=== PATIENT | male | born 1975 | race American Indian/Alaskan Native ===

== ENCOUNTER 2017-08-31 18:45 | Inpatient (IN) | payer MEDICAID, OTHER ==
[2017-08-31] MEDS ORDERED: TDAP Vaccine 0.5 mL Syr IM ONE (19:02)
[2017-08-31] MEDS ORDERED: Sodium Chloride 0.9% 1,000 ML IV SCH (19:30)
--- NOTE | 2017-08-31 19:32 | ED PDOC ---
Arrival/HPI - General Chief Complaint: Altered Mental Status Time Seen by Provider: 08/31/17 18:52 Historian: Patient - History of Present Illness Narrative History of Present Illness (Text): 08/31/17 18:58 A 42 year old male, whose past medical history includes substance abuse, brought into the emergency department for possible overdose. Patient was [place] the [place], likely having overdosed according to bystanders. Patient was given 2mg of Narcan intranasally and 2mg of Narcan through IV. Patient was somewhat arousable. Limited HPI and ROS due to patient unable to provide history secondary to altered mental status. No PMD Time/Duration: Prior to Arrival Symptom Course: Unchanged Activities at Onset: Light Context: Other (Park) Past Medical History - Provider Review Nursing Documentation Reviewed: Yes - Infectious Disease Hx of Infectious Diseases: None Family/Social History - Physician Review Nursing Documentation Reviewed: Yes Family/Social History: No Known Family HX Allergies/Home Meds Allergies/Adverse Reactions: Allergies Unobtainable Allergy (Verified 08/31/17 18:56) Home Medications: Home Meds Medication Instructions Recorded Confirmed [place]/Hydrochlorothiazide 30 tab PO 09/01/17 [Tekturna Hct 150 mg-12.5 mg] Review of Systems - Review of Systems Systems not reviewed;Unavailable: Altered Mental Status (overdose) Physical Exam Vital Signs Reviewed: Yes Vital Signs Temp Pulse Resp BP Pulse Ox 09/01/17 00:48 85 12 100/65 99 08/31/17 21:49 99 H 15 111/62 95 08/31/17 18:45 98.4 F 111 H 16 112/72 95 Temperature: Afebrile Blood Pressure: Normal Pulse: Regular Respiratory Rate: Normal Pain Distress: None - Systems Exam Head: Present: Normocephalic, Other (abrasion to forehead) Pupils: Present: PERRL Extroacular Muscles: Present: EOMI Conjunctiva: Present: Normal Mouth: Present: Moist Mucous Membranes Neck: Present: Other (diffuse tenderness) Respiratory/Chest: Present: Clear to Auscultation, Good Air Exchange. No: Respiratory Distress, Accessory Muscle Use Cardiovascular: Present: Regular Rate and Rhythm, Normal S1, S2. No: Murmurs Abdomen: No: Tenderness, Distention, Peritoneal Signs Upper Extremity: Present: Normal Inspection. No: Cyanosis, Edema Lower Extremity: Present: Normal Inspection. No: Edema Neurological: Present: GCS=15, CN II-XII Intact Skin: Present: Warm, Dry, Normal Color. No: Rashes Medical Decision Making ED Course and Treatment: 08/31/17 19:01 Impression: 42 year old male with overdose. Physical exam show abrasion to forehead; diffused tenderness to neck; lungs clear. Differential Diagnosis included but are not limited to: Overdose rule out Intracranial Hemorrhage vs. Fracture Plan: -- EKG -- Head CT -- Cervical CT -- Chest X-ray -- Labs -- IV Fluids -- TDAP Vaccine -- Urinalysis -- Reassess and disposition Progress Notes: EKG: Ordered, reviewed, and independently interpreted the EKG. Rate : 112 BPM Rhythm : Sinus tachycardia. Interpretation : No ST-segment elevations or depressions, no T-wave inversions, normal intervals. Comparison : No previous EKG for comparison. 08/31/17 20:56 Patient is awake and alert. Patient admits to substance abuse. 08/31/17 22:19 Case discussed with medical examiner low vision therapist, who is aware and agrees with plan. 08/31/17 22:[address] Smith, nixa physician, who is aware and agrees with plan. Accepts pt in to hospitalist service. [facility] for overdose. - Lab Interpretations Lab Results: 08/31/17 19:20 08/31/17 19:20 Lab Results 08/31/17 20:22: Urine Opiates Screen Negative, Urine Methadone Screen Negative, Ur Barbiturates Screen Negative, Ur Phencyclidine Scrn Negative, Ur Amphetamines Screen Negative, U Benzodiazepines Scrn Negative, U Oth Cocaine Metabols Positive H, U Cannabinoids Screen Negative 08/31/17 20:22: Urine Color Yellow, Urine Appearance Clear, Urine pH 5.5, Ur Specific [place] >= 1.030, Urine Protein 100 H, Urine Glucose (UA) 250 H, Urine Ketones Negative, Urine Blood Large H, Urine Nitrate Negative, Urine Bilirubin Negative, Urine Urobilinogen 0.2, Ur Leukocyte Esterase Negative, Urine RBC 25 - 30, Urine WBC 2 - 5, Ur Epithelial Cells 4 - 5 08/31/17 19:20: Alcohol, Quantitative < 10 08/31/17 19:20: Salicylates < 1 L, Acetaminophen < 10.0 L 08/31/17 19:20: Sodium 147, Potassium 4.5, Chloride 100, Carbon Dioxide 24, Anion Gap 27 H, BUN 21, Creatinine 2.0 H, Est GFR ( Amer) 45, Est GFR ( Non-Af Amer) 37, Random Glucose 264 H, Calcium 9.7, Magnesium 2.2, Total Bilirubin 0.5, AST 50, ALT 37, Alkaline Phosphatase 75, Total Creatine Kinase 572 H, CK-MB (CK-2) 3.5, CK-MB (CK-2) % Cancelled, Total Protein 8.6 H, Albumin 5.2 H, Globulin 3.4, Albumin/Globulin Ratio 1.5 08/31/17 19:20: WBC 5.1, RBC 5.74, Hgb 17.6, Hct 51.1, MCV 89.0, MCH 30.7, MCHC 34.4, RDW 12.8, Plt Count 184, MPV 9.1, Gran % 53.1, Lymph % (Auto) 42.0 H, [place] % (Auto) 2.9, Eos % (Auto) 1.6, Baso % (Auto) 0.4, Gran # 2.70, Lymph # ( Auto) 2.1, [place] # (Auto) 0.2, Eos # (Auto) 0.1, Baso # (Auto) 0.02 I have reviewed the lab results: Yes - RAD Interpretation Radiology Orders: 08/31/17 19:00 HEAD W/O CONTRAST [CT] Stat 08/31/17 19:01 CERVICAL SPINE W/O CONTRAST [CT] Stat CHEST PORTABLE [RAD] Stat - Medication Orders Current Medication Orders: Heparin Sodium (Porcine) (Heparin) 5,000 units SC Q8 HEIDI PRN Reason: Protocol Sodium Chloride (Sodium Chloride 0.9%) 1,000 mls @ 150 mls/hr IV .Q6H40M [facility] Last Admin: 09/01/17 05:17 Dose: 150 mls/hr eMAR Start Stop Document 09/01/17 05:17 BREN (Rec: 09/01/17 05:18 BREN [id number]) Intravenous Solution Start Date 09/01/17 Start Time 05:18 End Date 09/01/17 End time 11:48 Total Infusion Time 390 Lorazepam (Ativan) 1 mg IVP Q4H PRN; Protocol PRN Reason: Anxiety Last Admin: 09/01/17 03:07 Dose: 1 mg IVP Administration Document 09/01/17 03:07 BREN (Rec: 09/01/17 03:09 [id number] Charges for Administration # of IVP Administrations 1 Behavioural Document 09/01/17 03:07 BREN (Rec: 09/01/17 03:09 [id number] Maintenance Maintenance Dose No Nonmedicinal Nonmedicinal Interventions Redirect Therapeutic Communication Activity Give food/fluids See nurse's notes Comment pt seems restless and anxious Behavior Behavior for Medication: Anxiety Continuous pacing/restlessness Discontinued Medications Acetaminophen (Tylenol 325mg Tab) 650 mg PO STAT STA Stop: 08/31/17 20:57 Last Admin: 08/31/17 21:02 Dose: 650 mg Sodium Chloride (Sodium Chloride 0.9%) 1,000 mls @ 100 mls/hr IV .Q10H HEIDI Last Admin: 08/31/17 19:30 Dose: 100 mls/hr eMAR Start Stop Document 08/31/17 19:30 CNR (Rec: 08/31/17 19:30 CNR [id number]) Intravenous Solution Start Date 08/31/17 Start Time 19:30 Clindamycin Phosphate 600 mg/ (Sodium Chloride) 54 mls @ 108 mls/hr IVPB STAT STA PRN Reason: Protocol Stop: 08/31/17 22:26 Last Admin: 08/31/17 22:25 Dose: 108 mls/hr eMAR Start Stop Document 08/31/17 22:25 CNR (Rec: 08/31/17 22:26 CNR [id number]) Intravenous Solution Start Date 08/31/17 Start Time 22:25 End Date 08/31/17 End time 22:55 Total Infusion Time 30 Naloxone HCl (Narcan) 0.4 mg IVP STAT STA Stop: 08/31/17 23:59 Last Admin: 09/01/17 00:03 Dose: 0.4 mg IVP Administration Document 09/01/17 00:03 CNR (Rec: 09/01/17 00:03 CNR [id number]) Charges for Administration # of IVP Administrations 1 Tetanus/Reduced Diphtheria/Acell Pertussis (Boostrix Vaccine Inj) 0.5 ml IM .ONCE ONE Stop: 08/31/17 19:03 Last Admin: 08/31/17 19:30 Dose: 0.5 ml - Scribe Statement The provider has reviewed the documentation as recorded by the Luis Armando Leija Provider Scribe Attestation: All medical record entries made by the Luis Armando were at my direction and personally dictated by me. I have reviewed the chart and agree that the record accurately reflects my personal performance of the history, physical exam, medical decision making, and the department course for this patient. I have also personally directed, reviewed, and agree with the discharge instructions and disposition. Disposition/Present on Arrival - Present on Arrival History of DVT/PE: No History of Uncontrolled Diabetes: No Urinary Catheter: No History of Decub. Ulcer: No History Surgical Site Infection Following: None - Disposition Disposition: HOSPITALIZED Disposition Time: 22:31
[2017-08-31 19:38] LABS: BASO # 0.02 K/mm3 (0.0-2.0); BASO % 0.4 % (0.0-3.0); EOS # 0.1 (0.0-0.7); EOS % 1.6 % (1.5-5.0); GRAN # 2.7 (1.4-6.5); GRAN % 53.1 % (50.0-68.0); HEMOGLOBIN 17.6 g/dL (14.0-18.0); LYMPH # 2.1 (1.2-3.4); MEAN CORPUSCULAR HEMOGLOBIN 30.7 pg (25.0-35.0); MEAN CORPUSCULAR HGB CONC 34.4 g/dl (31.0-37.0); MEAN PLATELET VOLUME 9.1 fl (7.0-11.0); MONO # 0.2 (0.1-0.6); MONO % 2.9 % (1.0-6.0); RBC 5.74 10^6/uL (3.5-6.1); RED CELL DISTRIBUTION WIDTH 12.8 % (11.5-14.5); WHITE BLOOD COUNT 5.1 10^3/ul (4.5-11.0)
[2017-08-31 19:50] LABS: ALB/GLOB RATIO 1.5 (1.1-1.8); ALBUMIN 5.2 g/dL (3.0-4.8); CALCIUM 9.7 mg/dL (8.4-10.5)
[2017-08-31 19:52] LABS: ACETAMINOPHEN < 10.0 ug/ml (10.0-20.0); SALICYLATE < 1 mg/dL (2.0-20.0)
[2017-08-31 20:28] LABS: CK-MB 3.5 ng/mL (0.0-3.6)
[2017-08-31 20:58] LABS: PH,URINE 5.5 (4.7-8.0); URINE BILIRUBIN NEGATIVE (NEGATIVE); URINE BLOOD LARGE (NEGATIVE); URINE GLUCOSE (UA) 250 mg/dL (NEGATIVE); URINE LEUKOCYTE ESTERASE NEGATIVE Leu/uL (NEGATIVE); URINE PROTEIN 100 mg/dL (<30 mg/dL); URINE UROBILINOGEN 0.2 E.U./dL (<1 E.U./dL)
[2017-08-31 21:03] LABS: URINE APPEARANCE CLEAR (CLEAR); URINE COLOR YELLOW (YELLOW)
[2017-08-31 21:17] LABS: BARBITURATES, UR NEGATIVE (NEGATIVE); BENZODIAZEPINES, UR NEGATIVE (NEGATIVE); OPIATES, UR NEGATIVE (NEGATIVE); PHENCYCLIDINE, UR NEGATIVE (NEGATIVE)
[2017-08-31 22:01] LABS: URINE RBC 25 - 30 /hpf (0-2)
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
[2017-08-31] MEDS ORDERED: Naloxone 0.4 mg/ml Inj (Adult) IVP ONE (23:45)
[2017-08-31] MEDS ORDERED: Naloxone 0.4 mg/ml Inj (Adult) IVP STA (23:58)
[2017-09-01] MEDS: Sodium Chloride 0.9% 1,000 ML IV SCH ×2 (00:03→05:17)
[2017-09-01 00:20] LABS: ARTERIAL BLOOD GAS HCO3 19.6 mmol/L (21-28); ARTERIAL BLOOD GAS O2 SAT 99.7 % (95-98); ARTERIAL BLOOD GAS PCO2 39 mm/Hg (35-45); ARTERIAL BLOOD GAS PH 7.31 (7.35-7.45); ARTERIAL BLOOD GAS TCO2 20.8 mmol.L (22-28)
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
[2017-09-01 02:30] VITALS: BMI 36.1
[2017-09-01 07:35] LABS: BASO # 0.01 K/mm3 (0.0-2.0); BASO % 0.1 % (0.0-3.0); EOS # 0.1 (0.0-0.7); GRAN # 5.11 (1.4-6.5); HEMOGLOBIN 15.8 g/dL (14.0-18.0); LYMPH # 2.5 (1.2-3.4); LYMPH % 29.8 % (22.0-35.0); MEAN CELL VOLUME 87.7 fl (80.0-105.0); MEAN CORPUSCULAR HEMOGLOBIN 29.9 pg (25.0-35.0); MEAN CORPUSCULAR HGB CONC 34.1 g/dl (31.0-37.0); MEAN PLATELET VOLUME 8.7 fl (7.0-11.0); MONO # 0.7 (0.1-0.6); MONO % 8.1 % (1.0-6.0); RBC 5.29 10^6/uL (3.5-6.1); RED CELL DISTRIBUTION WIDTH 12.9 % (11.5-14.5); WHITE BLOOD COUNT 8.4 10^3/ul (4.5-11.0)
[2017-09-01 07:55] LABS: ALB/GLOB RATIO 1.3 (1.1-1.8); ALBUMIN 4.4 g/dL (3.0-4.8); ALT/SGPT 49 U/L (7-56); AST/SGOT 87 U/L (17-59); BLOOD UREA NITROGEN 22 mg/dL (7-21); CALCIUM 8.9 mg/dL (8.4-10.5); GFR AFRICAN-AMERICAN > 60; GFR NON-AFRICAN AMERICAN 56; HDL CHOLESTEROL 41 mg/dL (29-60)
[2017-09-01 08:05] LABS: LDL CHOLESTEROL 73 mg/dL (0-129)
--- NOTE | 2017-09-01 08:06 | RAD ---
HISTORY: overdose All overdose. COMPARISON: No prior. FINDINGS: LUNGS: No active pulmonary disease. PLEURA: No significant pleural effusion identified, no pneumothorax apparent. CARDIOVASCULAR: No radiographic findings to suggest acute or significant cardiovascular disease. OSSEOUS STRUCTURES: No significant abnormalities. VISUALIZED UPPER ABDOMEN: Normal. OTHER FINDINGS: None. IMPRESSION: No active disease.
[2017-09-01] MEDS ORDERED: metroNIDAZOLE IV 500 mg/100 ml 500 MG/100 ML BAG IVPB SCH (08:30)
[2017-09-01 08:34] VITALS: BP 109/73; PULSE 90; RESP 20; TEMP 97.7; O2SAT 97
[2017-09-01 10:00] LABS: CK MB% 0.5 % (2.5-3.0); CK-MB 21.7 ng/mL (0.0-3.6)
[2017-09-01] MEDS ORDERED: Famotidine 20mg/50ml 20 MG/50 ML BAG IV SCH (10:00)
[2017-09-01] MEDS ORDERED: cefTRIAXone 1 gm 1 GM/100 ML BAG IVPB SCH (10:00)
[2017-09-01] MEDS ORDERED: Sodium Chloride 0.9% 1,000 ML IV SCH ×2 (10:45→10:46)
[2017-09-01] MEDS ORDERED: Lactated Ringer's 1,000 ML IV SCH (10:45)
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
--- NOTE | 2017-09-01 11:13 | CT ---
PROCEDURE: CT Chest without contrast HISTORY: rule out pneumonia COMPARISON: None. TECHNIQUE: Contiguous axial images were obtained through the chest without intravenous contrast enhancement. Sagittal and coronal reconstructions were performed. Radiation dose (DLP): 597 mGy-cm. This CT exam was performed using one or more of the following dose reduction techniques: Automated exposure control, adjustment of the mA and/or kV according to patient size, and/or use of iterative reconstruction technique. FINDINGS: LUNGS: Linear infiltrates are seen in both lung bases most likely representing atelectasis. Early pneumonia is possible. There is also some atelectasis and thin consolidation along the pleural surface of both lower lobes. The upper lobes are clear. MEDIASTINUM: Unremarkable thoracic aorta. No aneurysm. Normal sized heart. Main pulmonary artery unremarkable. No vascular congestion. No lymphadenopathy. PLEURA: No pleural fluid. No pneumothorax. BONES: No fracture. No destructive lesion. UPPER ABDOMEN: Grossly unremarkable. OTHER FINDINGS: None. IMPRESSION: Linear infiltrates are seen in both lung bases most likely representing atelectasis. Early pneumonia is possible. There is also some atelectasis and thin consolidation along the pleural surface of both lower lobes. The upper lobes are clear.
--- NOTE | 2017-09-01 11:40 | US ---
PROCEDURE: Ultrasound of the Kidneys HISTORY: ANAND COMPARISON: None available. TECHNIQUE: Sonogram of the kidneys. FINDINGS: RIGHT KIDNEY: Measures: 5.6 x 10.6 cm. Normal in size, contour and echogenicity. No stone, solid mass lesion or hydronephrosis visualized. LEFT KIDNEY: Measures: 4.9 x 10.9 cm. Normal in size, contour and echogenicity. No stone, solid mass lesion or hydronephrosis visualized. Incidental finding(s): Upper pole cyst 12 mm. OTHER FINDINGS: None. IMPRESSION: No significant or acute findings to account for/ related to the clinical presentation.
[2017-09-01 12:05] LABS: HEPATITIS B SURFACE AG Negative (NEGATIVE)
[2017-09-01 12:11] LABS: HEPATITIS A IGM NEGATIVE (NEGATIVE)
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
[2017-09-01 12:59] LABS: HEPATITIS B CORE AB NEGATIVE (NEGATIVE)
--- NOTE | 2017-09-01 13:11 | CARD ---
APPROVED REPORT EKG Measurement Heart [id number] <Conclusion> Sinus tachycardia Q in 3 Prolonged QTc
--- NOTE | 2017-09-01 13:40 | CP.PCM.DIS ---
<David Mckeon - Last Filed: 09/01/17 13:37> Provider - Provider Date of Admission: 08/31/17 22:28 Attending physician: Sujey Goldberg MD Primary care physician: Ponce Ureña MD Consults: ID: [id number] Nephro: Neeta Time Spent in preparation of Discharge (in minutes): 45 Diagnosis - Discharge Diagnosis (1) Rhabdomyolysis Status: Acute (2) Polysubstance abuse Status: Chronic (3) Pneumonia Status: Acute (4) Prophylactic measure Status: Acute Hospital Course - Lab Results Lab Results: Most Recent Lab Values WBC 8.4 10^3/ul (4.5-11.0) D 09/01/17 07:20 RBC 5.29 10^6/uL (3.5-6.1) 09/01/17 07:20 Hgb 15.8 g/dL (14.0-18.0) 09/01/17 07:20 Hct 46.4 % (42.0-52.0) 09/01/17 07:20 MCV 87.7 fl (80.0-105.0) 09/01/17 07:20 MCH 29.9 pg (25.0-35.0) 09/01/17 07:20 MCHC 34.1 g/dl (31.0-37.0) 09/01/17 07:20 RDW 12.9 % (11.5-14.5) 09/01/17 07:20 Plt Count 137 10^3/uL (120.0-450.0) 09/01/17 07:20 MPV 8.7 fl (7.0-11.0) 09/01/17 07:20 Gran % 61.0 % (50.0-68.0) 09/01/17 07:20 Lymph % (Auto) 29.8 % (22.0-35.0) 09/01/17 07:20 [place] % (Auto) 8.1 % (1.0-6.0) H 09/01/17 07:20 Eos % (Auto) 1.0 % (1.5-5.0) L 09/01/17 07:20 Baso % (Auto) 0.1 % (0.0-3.0) 09/01/17 07:20 Gran # 5.11 (1.4-6.5) 09/01/17 07:20 Lymph # (Auto) 2.5 (1.2-3.4) 09/01/17 07:20 [place] # (Auto) 0.7 (0.1-0.6) H 09/01/17 07:20 Eos # (Auto) 0.1 (0.0-0.7) 09/01/17 07:20 Baso # (Auto) 0.01 K/mm3 (0.0-2.0) 09/01/17 07:20 pCO2 39 mm/Hg (35-45) 09/01/17 00:14 pO2 126.0 mm/Hg (80-100) H 09/01/17 00:14 HCO3 19.6 mmol/L (21-28) L 09/01/17 00:14 ABG pH 7.31 (7.35-7.45) L 09/01/17 00:14 ABG Total CO2 20.8 mmol.L (22-28) L 09/01/17 00:14 ABG O2 Saturation 99.7 % (95-98) H 09/01/17 00:14 ABG Base Excess -6.2 mmol/L (-2.0-3.0) L 09/01/17 00:14 ABG Potassium 3.6 mmol/L (3.6-5.2) 09/01/17 00:14 Sodium 142.0 mmol/L (132-148) 09/01/17 00:14 Chloride 112.0 mmol/L (98-107) H 09/01/17 00:14 Glucose 97 mg/dl (75-110) 09/01/17 00:14 Lactate 1.3 mmol/L (0.7-2.1) 09/01/17 00:14 FiO2 28.0 % 09/01/17 00:14 Sodium 145 mmol/L (132-148) 09/01/17 07:20 Potassium 4.1 mmol/L (3.6-5.0) 09/01/17 07:20 Chloride 101 mmol/L (98-107) 09/01/17 07:20 Carbon Dioxide 30 mmol/L (21-33) 09/01/17 07:20 Anion Gap 17 (10-20) 09/01/17 07:20 BUN 22 mg/dL (7-21) H 09/01/17 07:20 Creatinine 1.4 mg/dl (0.8-1.5) 09/01/17 07:20 Est GFR ( Amer) > 60 09/01/17 07:20 Est GFR (Non-Af Amer) 56 09/01/17 07:20 Random Glucose 87 mg/dL (70-110) 09/01/17 07:20 Hemoglobin A1c 5.4 % (4.2-6.5) 09/01/17 07:20 Calcium 8.9 mg/dL (8.4-10.5) 09/01/17 07:20 Magnesium 2.2 mg/dL (1.7-2.2) 08/31/17 19:20 Total Bilirubin 0.4 mg/dL (0.2-1.3) 09/01/17 07:20 AST 87 U/L (17-59) H D 09/01/17 07:20 ALT 49 U/L (7-56) 09/01/17 07:20 Alkaline Phosphatase 63 U/L (38-126) 09/01/17 07:20 Total Creatine Kinase 4690 U/L (35-230) H 09/01/17 07:30 CK-MB (CK-2) 21.7 ng/mL (0.0-3.6) H 09/01/17 07:30 CK-MB (CK-2) % 0.5 % (2.5-3.0) L 09/01/17 07:30 Total Protein 7.8 g/dL (5.8-8.3) 09/01/17 07:20 Albumin 4.4 g/dL (3.0-4.8) 09/01/17 07:20 Globulin 3.3 gm/dL 09/01/17 07:20 Albumin/Globulin Ratio 1.3 (1.1-1.8) 09/01/17 07:20 Triglycerides 75 mg/dL (35-160) 09/01/17 07:20 Cholesterol 142 mg/dL (130-200) 09/01/17 07:20 LDL Cholesterol Direct 73 mg/dL (0-129) 09/01/17 07:20 HDL Cholesterol 41 mg/dL (29-60) 09/01/17 07:20 Procalcitonin 6.93 NG/ML (0.19-0.49) H 09/01/17 07:20 Arterial Blood Potassium 3.6 mmol/L (3.6-5.2) 09/01/17 00:14 Urine Color Yellow (YELLOW) 08/31/17 20:22 Urine Appearance Clear (CLEAR) 08/31/17 20:22 Urine pH 5.5 (4.7-8.0) 08/31/17 20:22 Ur Specific [place] >= 1.030 (1.005-1.035) 08/31/17 20:22 Urine Protein 100 mg/dL (<30 mg/dL) H 08/31/17 20:22 Urine Glucose (UA) 250 mg/dL (NEGATIVE) H 08/31/17 20:22 Urine Ketones Negative mg/dL (NEGATIVE) 08/31/17 20:22 Urine Blood Large (NEGATIVE) H 08/31/17 20:22 Urine Nitrate Negative (NEGATIVE) 08/31/17 20:22 Urine Bilirubin Negative (NEGATIVE) 08/31/17 20:22 Urine Urobilinogen 0.2 E.U./dL (<1 E.U./dL) 08/31/17 20:22 Ur Leukocyte Esterase Negative Da/uL (NEGATIVE) 08/31/17 20:22 Urine RBC 25 - 30 /hpf (0-2) 08/31/17 20:22 Urine WBC 2 - 5 /hpf (0-6) 08/31/17 20:22 Ur Epithelial Cells 4 - 5 /hpf (0-5) 08/31/17 20:22 Salicylates < 1 mg/dL (2.0-20.0) L 08/31/17 19:20 Urine Opiates Screen Negative (NEGATIVE) 08/31/17 20:22 Urine Methadone Screen Negative (NEGATIVE) 08/31/17 20:22 Acetaminophen < 10.0 ug/ml (10.0-20.0) L 08/31/17 19:20 Ur Barbiturates Screen Negative (NEGATIVE) 08/31/17 20:22 Ur Phencyclidine Scrn Negative (NEGATIVE) 08/31/17 20:22 Ur Amphetamines Screen Negative (NEGATIVE) 08/31/17 20:22 U Benzodiazepines Scrn Negative (NEGATIVE) 08/31/17 20:22 U Oth Cocaine Metabols Positive (NEGATIVE) H 08/31/17 20:22 U Cannabinoids Screen Negative (NEGATIVE) 08/31/17 20:22 Alcohol, Quantitative < 10 mg/dL (0-10) 08/31/17 19:20 Hepatitis A IgM Ab Negative (NEGATIVE) 09/01/17 07:20 Hep Bs Antigen Negative (NEGATIVE) 09/01/17 07:20 Hep B Core IgM Ab Negative (NEGATIVE) 09/01/17 07:20 Hepatitis C Antibody No result (NEGATIVE) 09/01/17 07:20 - Hospital Course Hospital Course: 42 year old AA male with past medical hisotry that includes HTN, HLD and acid reflux who [place] [facility] [place] suspected [place]. Patient reports that earlier this afternoon he snorted 1 bag of heroin. He is unable to recall the events following the heroin use. Patient indicates that he was recently released from nursing home after one year. Reports he celebrated his release by attending a libertarian where he snorted cocaine, consumed multiple shots of alcohol and snorted 1 bag of heroin. Patient reports history of polysubstance abuse and history of IVDA. Denies headache, changes in vision, chest pain, palpitations, shortness of breath, diarrhea, fever, chills, weakness. Hospital Course: Patient did not want to stay in the hospital. Was made aware of the risks of leaving as he has bad rhabdo at this point. I explained that he must remain very hydrated. Counselled on his polysubstance abuse. Explained the risks of not seeking treatment. Patient still decided to leave AMA. Discharge Exam - Head Exam Head Exam: NORMAL INSPECTION - Eye Exam Eye Exam: EOMI, Normal appearance, PERRL Pupil Exam: NORMAL ACCOMODATION, PERRL - Respiratory Exam Respiratory Exam: Clear to PA & Lateral, NORMAL BREATHING PATTERN, UNREMARKABLE - Cardiovascular Exam Cardiovascular Exam: REGULAR RHYTHM. absent: Tachycardia - GI/Abdominal Exam GI & Abdominal Exam: Normal Bowel Sounds - Neurological Exam Neurological exam: Alert, CN II-XII Intact, Normal Gait, Oriented x3, Reflexes Normal - Psychiatric Exam Psychiatric exam: Normal Affect, Normal Mood - Skin Skin Exam: Dry, Intact, Normal Color, Warm Discharge Plan - Follow Up Plan Condition: GOOD Disposition: AGAINST MEDICAL ADVICE Referrals: Ponce Ureña MD [Primary Care Provider] - <Goldberg,Irfana B - Last Filed: 09/01/17 15:57> Provider - Provider Date of Admission: 08/31/17 22:28 Attending physician: Sujey Goldberg MD Primary care physician: Ponce Ureña MD Hospital Course - Lab Results Lab Results: Most Recent Lab Values WBC 8.4 10^3/ul (4.5-11.0) D 09/01/17 07:20 RBC 5.29 10^6/uL (3.5-6.1) 09/01/17 07:20 Hgb 15.8 g/dL (14.0-18.0) 09/01/17 07:20 Hct 46.4 % (42.0-52.0) 09/01/17 07:20 MCV 87.7 fl (80.0-105.0) 09/01/17 07:20 MCH 29.9 pg (25.0-35.0) 09/01/17 07:20 MCHC 34.1 g/dl (31.0-37.0) 09/01/17 07:20 RDW 12.9 % (11.5-14.5) 09/01/17 07:20 Plt Count 137 10^3/uL (120.0-450.0) 09/01/17 07:20 MPV 8.7 fl (7.0-11.0) 09/01/17 07:20 Gran % 61.0 % (50.0-68.0) 09/01/17 07:20 Lymph % (Auto) 29.8 % (22.0-35.0) 09/01/17 07:20 [place] % (Auto) 8.1 % (1.0-6.0) H 09/01/17 07:20 Eos % (Auto) 1.0 % (1.5-5.0) L 09/01/17 07:20 Baso % (Auto) 0.1 % (0.0-3.0) 09/01/17 07:20 Gran # 5.11 (1.4-6.5) 09/01/17 07:20 Lymph # (Auto) 2.5 (1.2-3.4) 09/01/17 07:20 [place] # (Auto) 0.7 (0.1-0.6) H 09/01/17 07:20 Eos # (Auto) 0.1 (0.0-0.7) 09/01/17 07:20 Baso # (Auto) 0.01 K/mm3 (0.0-2.0) 09/01/17 07:20 pCO2 39 mm/Hg (35-45) 09/01/17 00:14 pO2 126.0 mm/Hg (80-100) H 09/01/17 00:14 HCO3 19.6 mmol/L (21-28) L 09/01/17 00:14 ABG pH 7.31 (7.35-7.45) L 09/01/17 00:14 ABG Total CO2 20.8 mmol.L (22-28) L 09/01/17 00:14 ABG O2 Saturation 99.7 % (95-98) H 09/01/17 00:14 ABG Base Excess -6.2 mmol/L (-2.0-3.0) L 09/01/17 00:14 ABG Potassium 3.6 mmol/L (3.6-5.2) 09/01/17 00:14 Sodium 142.0 mmol/L (132-148) 09/01/17 00:14 Chloride 112.0 mmol/L (98-107) H 09/01/17 00:14 Glucose 97 mg/dl (75-110) 09/01/17 00:14 Lactate 1.3 mmol/L (0.7-2.1) 09/01/17 00:14 FiO2 28.0 % 09/01/17 00:14 Sodium 145 mmol/L (132-148) 09/01/17 07:20 Potassium 4.1 mmol/L (3.6-5.0) 09/01/17 07:20 Chloride 101 mmol/L (98-107) 09/01/17 07:20 Carbon Dioxide 30 mmol/L (21-33) 09/01/17 07:20 Anion Gap 17 (10-20) 09/01/17 07:20 BUN 22 mg/dL (7-21) H 09/01/17 07:20 Creatinine 1.4 mg/dl (0.8-1.5) 09/01/17 07:20 Est GFR ( Amer) > 60 09/01/17 07:20 Est GFR (Non-Af Amer) 56 09/01/17 07:20 Random Glucose 87 mg/dL (70-110) 09/01/17 07:20 Hemoglobin A1c 5.4 % (4.2-6.5) 09/01/17 07:20 Calcium 8.9 mg/dL (8.4-10.5) 09/01/17 07:20 Magnesium 2.2 mg/dL (1.7-2.2) 08/31/17 19:20 Total Bilirubin 0.4 mg/dL (0.2-1.3) 09/01/17 07:20 AST 87 U/L (17-59) H D 09/01/17 07:20 ALT 49 U/L (7-56) 09/01/17 07:20 Alkaline Phosphatase 63 U/L (38-126) 09/01/17 07:20 Total Creatine Kinase 4690 U/L (35-230) H 09/01/17 07:30 CK-MB (CK-2) 21.7 ng/mL (0.0-3.6) H 09/01/17 07:30 CK-MB (CK-2) % 0.5 % (2.5-3.0) L 09/01/17 07:30 Total Protein 7.8 g/dL (5.8-8.3) 09/01/17 07:20 Albumin 4.4 g/dL (3.0-4.8) 09/01/17 07:20 Globulin 3.3 gm/dL 09/01/17 07:20 Albumin/Globulin Ratio 1.3 (1.1-1.8) 09/01/17 07:20 Triglycerides 75 mg/dL (35-160) 09/01/17 07:20 Cholesterol 142 mg/dL (130-200) 09/01/17 07:20 LDL Cholesterol Direct 73 mg/dL (0-129) 09/01/17 07:20 HDL Cholesterol 41 mg/dL (29-60) 09/01/17 07:20 Procalcitonin 6.93 NG/ML (0.19-0.49) H 09/01/17 07:20 Arterial Blood Potassium 3.6 mmol/L (3.6-5.2) 09/01/17 00:14 Urine Color Yellow (YELLOW) 08/31/17 20:22 Urine Appearance Clear (CLEAR) 08/31/17 20:22 Urine pH 5.5 (4.7-8.0) 08/31/17 20:22 Ur Specific [place] >= 1.030 (1.005-1.035) 08/31/17 20:22 Urine Protein 100 mg/dL (<30 mg/dL) H 08/31/17 20:22 Urine Glucose (UA) 250 mg/dL (NEGATIVE) H 08/31/17 20:22 Urine Ketones Negative mg/dL (NEGATIVE) 08/31/17 20:22 Urine Blood Large (NEGATIVE) H 08/31/17 20:22 Urine Nitrate Negative (NEGATIVE) 08/31/17 20:22 Urine Bilirubin Negative (NEGATIVE) 08/31/17 20:22 Urine Urobilinogen 0.2 E.U./dL (<1 E.U./dL) 08/31/17 20:22 Ur Leukocyte Esterase Negative Da/uL (NEGATIVE) 08/31/17 20:22 Urine RBC 25 - 30 /hpf (0-2) 08/31/17 20:22 Urine WBC 2 - 5 /hpf (0-6) 08/31/17 20:22 Ur Epithelial Cells 4 - 5 /hpf (0-5) 08/31/17 20:22 Salicylates < 1 mg/dL (2.0-20.0) L 08/31/17 19:20 Urine Opiates Screen Negative (NEGATIVE) 08/31/17 20:22 Urine Methadone Screen Negative (NEGATIVE) 08/31/17 20:22 Acetaminophen < 10.0 ug/ml (10.0-20.0) L 08/31/17 19:20 Ur Barbiturates Screen Negative (NEGATIVE) 08/31/17 20:22 Ur Phencyclidine Scrn Negative (NEGATIVE) 08/31/17 20:22 Ur Amphetamines Screen Negative (NEGATIVE) 08/31/17 20:22 U Benzodiazepines Scrn Negative (NEGATIVE) 08/31/17 20:22 U Oth Cocaine Metabols Positive (NEGATIVE) H 08/31/17 20:22 U Cannabinoids Screen Negative (NEGATIVE) 08/31/17 20:22 Alcohol, Quantitative < 10 mg/dL (0-10) 08/31/17 19:20 Hepatitis A IgM Ab Negative (NEGATIVE) 09/01/17 07:20 Hep Bs Antigen Negative (NEGATIVE) 09/01/17 07:20 Hep B Core IgM Ab Negative (NEGATIVE) 09/01/17 07:20 Hepatitis C Antibody See replicates (NEGATIVE) 09/01/17 07:20 Attending/Attestation - Attestation I have personally seen and examined this patient.: Yes I have fully participated in the care of the patient.: Yes I have reviewed all pertinent clinical information, including history, physical exam and plan: Yes Notes (Text): Patient left AMA.
[2017-09-02 15:20] LABS: HEPATITIS C ANTIBODY REACTIVE (NEGATIVE)
== END 2017-09-01 14:46 | disposition left against medical advice (07) | DRG 917 ==
LOC: ED 18:45 → ERH 22:28 → 5RSO 09-01 01:21
PROVIDERS: ADMIT Internal Medicine; ATTEND Hospitalist
DX: T40.1X1A Poisoning by heroin, accidental (unintentional), initial encounter (principal); J69.0 Pneumonitis due to inhalation of food and vomit; M62.82 Rhabdomyolysis; E87.2 Acidosis; J98.11 Atelectasis; F11.10 Opioid abuse, uncomplicated; F14.90 Cocaine use, unspecified, uncomplicated; K21.9 Gastro-esophageal reflux disease without esophagitis; I10 Essential (primary) hypertension; E78.5 Hyperlipidemia, unspecified; E66.9 Obesity, unspecified; Z68.36 Body mass index [BMI] 36.0-36.9, adult